=== PATIENT | male | born 1950 | race Caucasian/White ===

== ENCOUNTER 2017-08-17 10:38 | Emergency (ER) | payer MEDICARE, OTHER ==
[2012-12-12 06:48] VITALS: BMI 36.6
== END 2017-08-17 11:45 | disposition home or self-care (01) ==
LOC: D.ER 10:38
DX: S86.011A Strain of right Achilles tendon, initial encounter (principal); X58.XXXA Exposure to other specified factors, initial encounter; Y93.89 Activity, other specified; Y92.89 Other specified places as the place of occurrence of the external cause; I10 Essential (primary) hypertension

== ENCOUNTER 2020-06-27 10:06 | Day surgery (SDC) | payer MEDICARE, OTHER ==
[~2020-06-27] VITALS: Ht 177.8 cm; Wt 108.9 kg
[~2020-06-27 10:06] MED LIST: ALTACE10 MG PO; BAYER CHEWABLE81 MG PO; NORVASC5 MG PO; RESTORIL15 MG PO
[2020-06-27 10:55] LABS: HEMATOCRIT 41.9 % (42.0-54.0); MCH 31.4 pg (26.0-34.0); MCHC 33.4 g/dL (31.0-37.0); MCV 93.9 fL (80.0-100.0); RBC 4.46 10x6/uL (4.20-6.10); RDW 13.1 % (11.5-14.5); WBC 6.8 10x3/uL (4.8-10.8)
[2020-06-27 11:05] VITALS: BP 130/84; Ht 177.8 cm; Wt 108.9 kg
--- NOTE | 2020-06-29 13:49 | OP ---
PATIENT NAME: LUIS SWIFT MEDICAL RECORD: [id number] :52 LOCATION:[facility] ADMISSION DATE: SURGEON: TEDDY HANNAH MD DATE OF OPERATION: 06/27/2020 PREOPERATIVE DIAGNOSIS: Arthritis of the right hip. POSTOPERATIVE DIAGNOSIS: Arthritis of the right hip. PROCEDURE: Right hip injection under anesthesia. SURGEON: Teddy Hannah MD ANESTHESIA: TIVA. INTRAOPERATIVE COMPLICATIONS: None. SUMMARY OF PATHOLOGIC FINDINGS: Consistent with the preoperative radiographs and MRI. 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 After discussion of risks and benefits associated with this the patient wished to proceed with an injection under fluoroscopic guidance with anesthesia. OPERATIVE SUMMARY IN DETAIL: After obtaining the appropriate preoperative orthopedic surgery consent as well as anesthetic consultation, evaluation and clearance, the patient was brought to the operating room and placed on the x-ray table in supine position after adequate general timeout was taken and agreed upon by all given the patient unique identifiers. The hip was prepped and draped in routine sterile fashion. An 18-gauge needle was then advanced into the hip capsule under fluoroscopic guidance, withdrawn and injected a small amount of fluoroscopy was then utilized to show the appropriate position of the needle tip. At this point, 40 mg of Depo-Medrol and 60 cc of 0.25% Marcaine with epinephrine were placed into the hip capsule. Having completed this, the needle was withdrawn. Tip was intact. Bandage was applied. The patient was taken to outpatient in stable condition. TRANSINT:[id number] Voice Confirmation ID: [id number] DOCUMENT ID: [id number] TEDDY HANNAH MD at 1349 CC: [id number] DICTATION DATE: 06/27/20 1440 [place] SEWER: 06/28/20 0123 [facility] 06/27/20 [place] [id number] [place] [id number]
== END 2020-06-27 14:10 | disposition home or self-care (01) ==
LOC: D.OPS 10:06
PROVIDERS: Anesthesiology; ATTEND Orthopaedic Surgery
DX: M16.11 Unilateral primary osteoarthritis, right hip (principal); M25.551 Pain in right hip; M54.12 Radiculopathy, cervical region

== ENCOUNTER → 2020-07-05 14:43 | Outpatient (CLI) | payer MEDICARE, OTHER ==
[2020-06-27 11:05] VITALS: BMI 34.5
== END | disposition home or self-care (01) ==
LOC: D.MRI 07-04 15:00
PROVIDERS: ATTEND Orthopaedic Surgery
DX: M54.12 Radiculopathy, cervical region (principal)

== ENCOUNTER → 2020-07-28 10:33 | Outpatient (CLI) | payer MEDICARE, OTHER ==
[2020-06-27 11:05] VITALS: BMI 34.5
== END | disposition home or self-care (01) ==
LOC: D.MRI 10:33
PROVIDERS: ATTEND Clinical Nurse Specialist Family Health
DX: M25.551 Pain in right hip (principal)

== ENCOUNTER → 2021-04-07 12:25 | Outpatient (CLI) | payer MEDICARE, OTHER ==
[2020-06-27 11:05] VITALS: BMI 34.5
[2021-04-07 13:03] LABS: BASOPHILS 0.8 % (0-2); HEMATOCRIT 40.9 % (42.0-54.0); HEMOGLOBIN 13.8 g/dL (13.5-17.5); LYMPHOCYTES 27.3 % (15-50); MCH 30.8 pg (26.0-34.0); MCHC 33.8 g/dL (31.0-37.0); MCV 91.2 fL (80.0-100.0); MEAN PLATELET VOLUME 7.3 fL (7.4-10.4); MONOCYTES 9.4 % (2-11); NEUTROPHILS 58.5 % (40-80); PLATELET COUNT 216 10x3/uL (130-400); RBC 4.48 10x6/uL (4.20-6.10); RDW 12.9 % (11.5-14.5); WBC 6.6 10x3/uL (4.8-10.8)
[2021-04-07 14:00] LABS: ALKALINE PHOSPHATASE 78 U/L (30-120); ALT (SGPT) 71 U/L (10-68); BILIRUBIN - TOTAL 0.53 mg/dL (0.2-1.3); CALC OSMOLALITY 279 mosm/kg (275-300); CALCIUM 9.1 mg/dL (8.5-10.1); CARBON DIOXIDE 26.6 mmol/L (21.0-32.0); CHLORIDE - SERUM 102 mmol/L (98-107); CREATININE - SERUM 0.9 mg/dL (0.6-1.3); GLUCOSE 107 mg/dL (74-106); POTASSIUM - SERUM 4.3 mmol/L (3.5-5.1); PROTEIN - SERUM 7.7 g/dL (6.4-8.2); SODIUM 140 mmol/L (136-145); T4 THYROXIN - FREE 0.92 ng/dL (0.76-1.46); THYROID STIMULATING HORMONE 1.46 uIU/mL (0.36-3.74); UREA NITROGEN 15 mg/dL (7-18); eGFR NON AFRICAN AMERICAN 89 mL/min (90-120)
[2021-04-07 15:21] LABS: ERYTHROCYTE SEDIMENTATION RATE 11 mm/hr (0-20)
== END | disposition home or self-care (01) ==
LOC: D.LAB 12:25
PROVIDERS: ATTEND Psychiatry & Neurology Neurology
DX: G60.9 Hereditary and idiopathic neuropathy, unspecified (principal)